=== PATIENT | female | born 1960 | race Caucasian/White ===

== ENCOUNTER 2020-01-17 05:21 | Emergency (ER) | payer OTHER, SELFPAY ==
[2020-01-17 05:22] VITALS: BP 170/77; PULSE 112; RESP 20; O2SAT 97; BMI 40.7
--- NOTE | 2020-01-17 05:43 | CT_ITS ---
WS: [id number] CTA OF THE CHEST WITH PULMONARY EMBOLISM PROTOCOL TECHNIQUE: High-resolution contrast enhanced CTA of the chest with coronal and sagittal reformatted i mages with pulmonary embolism protocol. MIP images are also reviewed. CLINICAL INFORMATION: chest pain COMPARISON: December 18, 2018 DLP: 573.[address] scans at [facility] use at least one of these dose optimization techniques: automat ed exposure control; mA and/or kV adjustment per patient size (includes targeted exams where dose is matched to clinical indication); or iterative reconstruction. FINDINGS: Proximal main pulmonary arteries are patent. Segmental and subsegmental arteries are patent. No evide nce for pulmonary embolus. Both lungs are well aerated. No acute pulmonary infiltrates. No consolidation or pleural fluid. No fo omega pneumonia. No mediastinal or hilar lymphadenopathy. No axillary lymphadenopathy. Moderate esophag eal hiatal hernia. Hepatic vein reflux unchanged from 2019. CT/CT angio chest PE protcl [id number] IMPRESSION: 1. No evidence of pulmonary embolus. 2. No acute pulmonary infiltrates. Lungs are well aerated. 3. Tricuspid regurgitation with reflux into the hepatic veins.
--- NOTE | 2020-01-17 05:44 | ECG_ITS ---
Measurements Intervals [place] Rate: 94 P: [place]: 0 QRS: 18 QRSD: 109 T: 114 QT: 366 QTc: 459 ATRIAL FIBRILLATION WITH ABERRANT CONDUCTION OR VENTRICULAR PREMATURE COMPLEXES NONSPECIFIC ST & T-WAVE ABNORMALITY Compared to ECG 12/18/2018 14:54:34 Ventricular premature complex(es) now present Aberrant conduction of supraventricular beat(s) now present Supraventricular rhythm no longer present T-wave abnormality still present Electronically Signed On 01-17-2020 15:32:01 CHILD CARE DIRECTOR by Nancy Mims M.D. [id number]
--- NOTE | 2020-01-17 05:45 | ED_ITS ---
Documented by User: Clem Chi DO 01/17/20 06:15 HPI - SOB/Dyspnea General: Chief Complaint: Shortness of Breath/Dyspnea Stated Complaint: difficulty breathing Time Seen by Provider: 01/17/20 05:28 History of Present Illness: MD elicited complaint: shortness of breath Pertinent past history: PE Onset (ago): hour(s) Context: recent illness and anxiety Timing: constant Severity: similar to previous episodes Exacerbating factors: exertion Known history of: PE Associated symptoms: Deny chest pain, cough, dizziness, fever(s) or nausea Treatment prior to arrival: none Review of Systems Const: Denies: fever or chills Eyes: Denies: change in vision or blurry vision ENMT: Denies: painful swallowing, nose bleeds, post nasal drip or facial/sinus pain Card: Denies: chest pain Resp: Reports: shortness of breath; Denies: productive cough, non-productive cough or wheezing GI: Denies: nausea : Denies: painful urination, urinary frequency, urinary urgency or blood in urine Musc: Denies: neck pain or back pain Skin/Breast: Denies: rash, itching or redness Neuro: Denies: headache or dizziness Psych: Denies: anxiety PFSH ED PFSH: Social History Smoking and tobacco status: former smoker Physical Exam Const: GENERAL APPEARANCE: well developed ORIENTATION/CONSCIOUSNESS: Yes oriented to person, Yes oriented to place and Yes oriented to time HENMT: COMMON NORMALS: normocephalic, external ears normal and external nose normal HEAD & SCALP: normocephalic; no scalp tenderness FACE & SINUS: normal facial exam NOSE: external nose normal and no nasal discharge EXTERNAL EAR: Yes external ears normal MOUTH: tongue normal TEETH & GINGIVA: no abnormal tooth and associated gingiva THROAT: posterior oropharynx normal; no peritonsillar mass Eye: COMMON NORMALS: PERRL, EOMs intact bilaterally and conjunctivae normal EYELID: eyelids normal CONJUNCTIVA: Yes conjunctivae normal PUPIL: Yes PERRL Chest: COMMONS NORMALS: inspection of chest normal CHEST: No tenderness Resp: COMMON NORMALS: clear to auscultation bilaterally EFFORT & INSPECTION: No tachypneic, No respiratory distress, No retractions, No uses accessory muscles and No tracheal deviation AUSCULTATION: clear to auscultation bilaterally, no rhonchi, no wheezes and lung sounds not diminished Cardio: COMMON NORMALS: regular rate and regular rhythm RATE: regular rate RHYTHM: regular rhythm HEART SOUNDS: no murmurs PERIPHERAL PULSES: radial pulses present GI: INSPECTION: No abdominal distension AUSCULTATION: No hyperactive bowel sounds and No hypoactive bowel sounds PALPATION: No guarding and No rigid PERCUSSION: no dullness to percussion and no tympanic to percussion Extremity: COMMON NORMALS: no calf tenderness and no pedal edema Neuro: SENSORIUM/ORIENTATION: Yes oriented to person, Yes oriented to place and Yes oriented to time Psych: COMMON NORMALS: mental status grossly normal MOOD & AFFECT: Yes anxious Skin: COMMON NORMALS: no rashes or lesions noted GENERAL SKIN EXAM: no rashes or lesions noted Course Vital Signs: Vital signs: Vital Signs Pulse Rate 54 L 01/17/20 08:31 Respiratory Rate 16 01/17/20 08:31 Blood Pressure 129/81 01/17/20 08:31 Pulse Oximetry 98 01/17/20 08:31 MDM - SOB/Dyspnea MDM Narrative: Medical decision making narrative: 59yo female with a hx of PE last year, on Eliquis. Presents with sudden onset sob. Feels like can't get last part of breath in. She is quite anxious, mildly tearful. EKG shows sinus rhythm with frequent pvcs. No st elevation. saturations 100% on the monitor. Labs and CTA ordered. She'll be checked out to Dr. Mason at shift change. Lab Data: Labs: Lab Results 01/17/20 01/17/20 01/17/20 Range/Units 05:35 05:35 05:35 WBC 6.6 (4.0-10.0) 10^3/ uL RBC 5.23 (4.1-5.3) 10^6/u L Hgb 14.9 (11.5-15.3) g/dL Hct 47.4 H (37.0-47.0) % MCV 90.6 (81-99) fL MCH 28.5 (28.0-34.0) pg MCHC 31.4 (30.0-36.0) g/dL RDW 12.9 (12.1-15.1) % Plt Count 242 (130-400) 10^3/c mm MPV 12.0 H (7.4-10.4) fL Neut % (Auto) 49.9 % Lymph % (Auto) 39.0 % [place] % (Auto) 7.9 % Eos % (Auto) 2.1 % Baso % (Auto) 0.8 % Neut # (Auto) 3.3 (1.8-7.7) 10^3/u L Lymph # (Auto) 2.6 (0.8-4.8) 10^3/u L [place] # (Auto) 0.5 (0.2-0.9) 10^3/u L Eos # (Auto) 0.1 (0.0-0.8) 10^3/u L Baso # (Auto) 0.1 (0.0-0.1) 10^3/u L Nucleated RBC % (a uto) 0 % Nucleated RBCs # 0.0 /100WBC PT 13.00 (10.5-13.3) SECO NDS INR 0.96 (0.8-1.2) APTT 27.5 (23.9-36.7) SECO NDS Sodium 141 (136-145) mmol/L Potassium 4.0 (3.5-5.1) mmol/L Chloride 104 (98-107) mmol/L Carbon Dioxide 26 (22-29) mmol/L Anion Gap 15.0 (5-19) BUN 20 (6-20) mg/dL Creatinine 0.8 (0.5-0.9) mg/dL GFR Calculation 73.4 L (90-130) mL/min Glucose 131 H (65-115) mg/dL Calcium 9.5 (8.5-10.5) mg/dL Total Bilirubin 0.3 (0.15-1.2) mg/dL AST 18 (0-32) U/L ALT 20 (0-33) U/L Alkaline Phosphata se 66 (35-105) IU/L Troponin T Baselin e (0-10) ng/mL Troponin T 120 Min lower [place] (0-10) ng/mL Delta Troponin T (0-10) ABS# NT-Pro-B Natriuret Pep 1330 H (0-125) pg/mL Total Protein 6.5 L (6.6-8.7) g/dL Albumin 4.4 (3.5-5.2) g/dL Globulin 2.1 (1.3-4.6) g/dL 01/17/20 01/17/20 Range/Units 05:35 07:20 WBC (4.0-10.0) 10^3/ uL RBC (4.1-5.3) 10^6/u L Hgb (11.5-15.3) g/dL Hct (37.0-47.0) % MCV (81-99) fL MCH (28.0-34.0) pg MCHC (30.0-36.0) g/dL RDW (12.1-15.1) % Plt Count (130-400) 10^3/c mm MPV (7.4-10.4) fL Neut % (Auto) % Lymph % (Auto) % [place] % (Auto) % Eos % (Auto) % Baso % (Auto) % Neut # (Auto) (1.8-7.7) 10^3/u L Lymph # (Auto) (0.8-4.8) 10^3/u L [place] # (Auto) (0.2-0.9) 10^3/u L Eos # (Auto) (0.0-0.8) 10^3/u L Baso # (Auto) (0.0-0.1) 10^3/u L Nucleated RBC % (a uto) % Nucleated RBCs # /100WBC PT (10.5-13.3) SECO NDS INR (0.8-1.2) APTT (23.9-36.7) SECO NDS Sodium (136-145) mmol/L Potassium (3.5-5.1) mmol/L Chloride (98-107) mmol/L Carbon Dioxide (22-29) mmol/L Anion Gap (5-19) BUN (6-20) mg/dL Creatinine (0.5-0.9) mg/dL GFR Calculation (90-130) mL/min Glucose (65-115) mg/dL Calcium (8.5-10.5) mg/dL Total Bilirubin (0.15-1.2) mg/dL AST (0-32) U/L ALT (0-33) U/L Alkaline Phosphata se (35-105) IU/L Troponin T Baselin e 23 H (0-10) ng/mL Troponin T 120 Min lower [place] 17.55 H (0-10) ng/mL Delta Troponin T -5.45 L (0-10) ABS# NT-Pro-B Natriuret Pep (0-125) pg/mL Total Protein (6.6-8.7) g/dL Albumin (3.5-5.2) g/dL Globulin (1.3-4.6) g/dL Discharge Plan Discharge Patient Disposition: Home, Self-Care Clinical Impression: Atrial fibrillation, controlled, Congestive heart failure, History of pulmonary embolism Condition: Stable Prescriptions: No Action levothyroxine 88 mcg Tablet 88 mcg PO DAILY RF: 0 triamterene-hydrochlorothiazid 37.5-25 mg Tablet 1 tab PO DAILY RF: 0 Eliquis 5 mg Tablet 5 mg PO BID RF: 0 Discharge Orders: Discharge Order (Routine); Ordered 01/17/20 Ordered By: Rommel Mason Other Ambulatory Orders: Holter Monitor (Routine) Timeframe: 1 Day Facility: [facility] - Location: Cardiology Outpatients Ordered By: Rommel Mason Referrals: [facility] [Other] Discharge Diet: Usual diet Discharge Activity: Resume usual activity Activity Restrictions/Additional Instructions: Outpatients will contact you with an appointment for a 24-hour Holter monitor. Continue all of your other medications at this time. Discharge Date/Time: 01/17/20 08:32 Sign Out Sign Out Data: Patient Sign Out occurred on 01/17/20 at 06:15. Patient's care was discussed, and care was transferred from to Rommel Mason DO. Coding Level of Care Code ED Patient Care Director for Chg Fwd Exam Comprehensive Documented by User: Rommel Mason DO 01/17/20 09:21 HPI - SOB/Dyspnea General: Chief Complaint: Shortness of Breath/Dyspnea Stated Complaint: difficulty breathing Time Seen by Provider: 01/17/20 05:28 History of Present Illness: HPI Narrative: 59 yo female presents with complaint of dyspnea. She has had PE in the past and is currently on eliquis. Dr Chi initially and has ordered a CT scan for PE. results are pending. MD elicited complaint: shortness of breath Pertinent past history: PE Onset (ago): hour(s) Timing: constant Severity: moderate Exacerbating factors: exertion Relieving factors: oxygen and rest Known history of: PE Associated symptoms: Reports no associated symptoms PFSH ED PFSH: Social History Smoking and tobacco status: former smoker Physical Exam Const: COMMON NORMALS: average body habitus, oriented x3 and alert GENERAL APPEARANCE: cooperative, comfortable, well kempt and well developed NUTRITIONAL APPEARANCE: obese ORIENTATION/CONSCIOUSNESS: Yes awake, Yes oriented to person and Yes oriented to place Eye: COMMON NORMALS: PERRL, EOMs intact bilaterally, conjunctivae normal and no scleral icterus CONJUNCTIVA: Yes conjunctivae normal PUPIL: Yes PERRL Neck/C-Spine: COMMON NORMALS: full ROM, no lymphadenopathy, supple, no meningeal signs and thyroid normal THYROID: thyroid normal and asymmetrical Lymph: LYMPHATIC: no lymphadenopathy noted Resp: COMMON NORMALS: normal respiratory effort, no retractions, no use of accessory muscles and clear to auscultation bilaterally AUSCULTATION: clear to auscultation bilaterally Cardio: COMMON NORMALS: regular rate and regular rhythm RATE: regular rate RHYTHM: regular rhythm HEART SOUNDS: no murmurs GI: COMMON NORMALS: normal to inspection, nondistended, normoactive bowel sounds, soft to palpation and no hepatosplenomegaly PALPATION: Yes soft and Yes no hepatosplenomegaly : COMMON NORMALS: Yes no CVA tenderness BLADDER/KIDNEY EXAM: Yes no CVA tenderness Back/Pelvis: COMMON NORMALS: no CVA tenderness LUMBAR SPINE/LOWER BACK: Yes normal to inspection Extremity: COMMON NORMALS: no clubbing, cyanosis or edema, no calf tenderness and no pedal edema Neuro: COMMON NORMALS: oriented x3 SENSORIUM/ORIENTATION: Yes alert, Yes oriented to person and Yes oriented to place MENINGEAL SIGNS: Yes no meningeal signs Psych: APPEARANCE: Yes well kempt Skin: COMMON NORMALS: no rashes or lesions noted and skin turgor normal GENERAL SKIN EXAM: no rashes or lesions noted and turgor normal Course ED course: CTA chest negative for pulmonary emboli there is no evidence of pneumonia or CHF. Will renew and discharge patient home at this point continue Eliankush. Have her follow-up with her primary care doctor. She did have on her EKGs what it did appear to be A. fib she has frequent PVCs from the EKG there are no P waves and it is irregular however the rate is very well controlled. She is already on anticoagulants that I think should be all she would need to have at this point will put her on 24-hour Holter monitor. Vital Signs: Vital signs: Vital Signs Pulse Rate 54 L 01/17/20 08:31 Respiratory Rate 16 01/17/20 08:31 Blood Pressure 129/81 01/17/20 08:31 Pulse Oximetry 98 01/17/20 08:31 MDM - SOB/Dyspnea Lab Data: Labs: Lab Results 01/17/20 01/17/20 01/17/20 Range/Units 05:35 05:35 05:35 WBC 6.6 (4.0-10.0) 10^3/ uL RBC 5.23 (4.1-5.3) 10^6/u L Hgb 14.9 (11.5-15.3) g/dL Hct 47.4 H (37.0-47.0) % MCV 90.6 (81-99) fL MCH 28.5 (28.0-34.0) pg MCHC 31.4 (30.0-36.0) g/dL RDW 12.9 (12.1-15.1) % Plt Count 242 (130-400) 10^3/c mm MPV 12.0 H (7.4-10.4) fL Neut % (Auto) 49.9 % Lymph % (Auto) 39.0 % [place] % (Auto) 7.9 % Eos % (Auto) 2.1 % Baso % (Auto) 0.8 % Neut # (Auto) 3.3 (1.8-7.7) 10^3/u L Lymph # (Auto) 2.6 (0.8-4.8) 10^3/u L [place] # (Auto) 0.5 (0.2-0.9) 10^3/u L Eos # (Auto) 0.1 (0.0-0.8) 10^3/u L Baso # (Auto) 0.1 (0.0-0.1) 10^3/u L Nucleated RBC % (a uto) 0 % Nucleated RBCs # 0.0 /100WBC PT 13.00 (10.5-13.3) SECO NDS INR 0.96 (0.8-1.2) APTT 27.5 (23.9-36.7) SECO NDS Sodium 141 (136-145) mmol/L Potassium 4.0 (3.5-5.1) mmol/L Chloride 104 (98-107) mmol/L Carbon Dioxide 26 (22-29) mmol/L Anion Gap 15.0 (5-19) BUN 20 (6-20) mg/dL Creatinine 0.8 (0.5-0.9) mg/dL GFR Calculation 73.4 L (90-130) mL/min Glucose 131 H (65-115) mg/dL Calcium 9.5 (8.5-10.5) mg/dL Total Bilirubin 0.3 (0.15-1.2) mg/dL AST 18 (0-32) U/L ALT 20 (0-33) U/L Alkaline Phosphata se 66 (35-105) IU/L Troponin T Baselin e (0-10) ng/mL Troponin T 120 Min lower [place] (0-10) ng/mL Delta Troponin T (0-10) ABS# NT-Pro-B Natriuret Pep 1330 H (0-125) pg/mL Total Protein 6.5 L (6.6-8.7) g/dL Albumin 4.4 (3.5-5.2) g/dL Globulin 2.1 (1.3-4.6) g/dL 01/17/20 01/17/20 Range/Units 05:35 07:20 WBC (4.0-10.0) 10^3/ uL RBC (4.1-5.3) 10^6/u L Hgb (11.5-15.3) g/dL Hct (37.0-47.0) % MCV (81-99) fL MCH (28.0-34.0) pg MCHC (30.0-36.0) g/dL RDW (12.1-15.1) % Plt Count (130-400) 10^3/c mm MPV (7.4-10.4) fL Neut % (Auto) % Lymph % (Auto) % [place] % (Auto) % Eos % (Auto) % Baso % (Auto) % Neut # (Auto) (1.8-7.7) 10^3/u L Lymph # (Auto) (0.8-4.8) 10^3/u L [place] # (Auto) (0.2-0.9) 10^3/u L Eos # (Auto) (0.0-0.8) 10^3/u L Baso # (Auto) (0.0-0.1) 10^3/u L Nucleated RBC % (a uto) % Nucleated RBCs # /100WBC PT (10.5-13.3) SECO NDS INR (0.8-1.2) APTT (23.9-36.7) SECO NDS Sodium (136-145) mmol/L Potassium (3.5-5.1) mmol/L Chloride (98-107) mmol/L Carbon Dioxide (22-29) mmol/L Anion Gap (5-19) BUN (6-20) mg/dL Creatinine (0.5-0.9) mg/dL GFR Calculation (90-130) mL/min Glucose (65-115) mg/dL Calcium (8.5-10.5) mg/dL Total Bilirubin (0.15-1.2) mg/dL AST (0-32) U/L ALT (0-33) U/L Alkaline Phosphata se (35-105) IU/L Troponin T Baselin e 23 H (0-10) ng/mL Troponin T 120 Min lower [place] 17.55 H (0-10) ng/mL Delta Troponin T -5.45 L (0-10) ABS# NT-Pro-B Natriuret Pep (0-125) pg/mL Total Protein (6.6-8.7) g/dL Albumin (3.5-5.2) g/dL Globulin (1.3-4.6) g/dL Discharge Plan Discharge Patient Disposition: Home, Self-Care Clinical Impression: Atrial fibrillation, controlled, Congestive heart failure, History of pulmonary embolism Condition: Stable Prescriptions: No Action levothyroxine 88 mcg Tablet 88 mcg PO DAILY RF: 0 triamterene-hydrochlorothiazid 37.5-25 mg Tablet 1 tab PO DAILY RF: 0 Eliquis 5 mg Tablet 5 mg PO BID RF: 0 Discharge Orders: Discharge Order (Routine); Ordered 01/17/20 Ordered By: Rommel Mason Other Ambulatory Orders: Holter Monitor (Routine) Timeframe: 1 Day Facility: [facility] - Location: Cardiology Outpatients Ordered By: Rommel Mason Referrals: [facility] [Other] Discharge Diet: Usual diet Discharge Activity: Resume usual activity Activity Restrictions/Additional Instructions: Outpatients will contact you with an appointment for a 24-hour Holter monitor. Continue all of your other medications at this time. Discharge Date/Time: 01/17/20 08:32 Sign Out Sign Out Data: Patient Sign Out occurred on 01/17/20 at 06:15. Patient's care was discussed, and care was transferred from to Rommel Mason DO. Coding Level of Care Code ED Patient Care Director for Matt Fwesvin Exam Comprehensive
[2020-01-17] MEDS: LORazepam 2 mg/mL INJ 1 mL 1 MG IVP (05:50)
[2020-01-17 05:55] VITALS: BP 170/77; PULSE 78; RESP 20; O2SAT 100
[2020-01-17 06:00] LABS: Basophils # 0.1 10^3/uL (0.0-0.1); Basophils % 0.8 %; Eosinophils # 0.1 10^3/uL (0.0-0.8); Eosinophils % 2.1 %; Hematocrit 47.4 % (37.0-47.0); Hemoglobin 14.9 g/dL (11.5-15.3); Lymphocytes # 2.6 10^3/uL (0.8-4.8); Mean Corpuscular HGB Conc 31.4 g/dL (30.0-36.0); Mean Corpuscular Hemoglobin 28.5 pg (28.0-34.0); Mean Corpuscular Volume 90.6 fL (81-99); Monocytes # 0.5 10^3/uL (0.2-0.9); Monocytes % 7.9 %; Neutrophils # 3.3 10^3/uL (1.8-7.7); Neutrophils % 49.9 %; Nucleated Red Blood Cells % 0 %; Platelet Count 242 10^3/cmm (130-400); Red Blood Count 5.23 10^6/uL (4.1-5.3); Red Cell Distribution Width 12.9 % (12.1-15.1); White Blood Count 6.6 10^3/uL (4.0-10.0)
[2020-01-17 06:05] LABS: INR 0.96 (0.8-1.2)
[2020-01-17 06:06] LABS: Partial Thromboplastin Time 27.5 SECONDS (23.9-36.7)
[2020-01-17 06:11] LABS: Troponin(5th) Baseline 23 ng/mL (0-10)
[2020-01-17 06:20] LABS: Alanine Aminotransferase 20 U/L (0-33); Albumin Level 4.4 g/dL (3.5-5.2); Alkaline Phosphatase 66 IU/L (35-105); Aspartate Amino Transferase 18 U/L (0-32); Blood Urea Nitrogen 20 mg/dL (6-20); Calcium 9.5 mg/dL (8.5-10.5); Carbon Dioxide 26 mmol/L (22-29); Chloride 104 mmol/L (98-107); Globulin 2.1 g/dL (1.3-4.6); Glomerular Filtration Rate 73.4 mL/min (90-130); Glucose 131 mg/dL (65-115); NT Pro B Type Natriuretic Pept 1330 pg/mL (0-125); Sodium 141 mmol/L (136-145); Total Bilirubin 0.3 mg/dL (0.15-1.2); Total Protein 6.5 g/dL (6.6-8.7)
--- NOTE | 2020-01-17 06:26 | PC.NURSE ---
Patient states she feels more relaxed and less anxious after ativan but still can't get a deep full breath
--- NOTE | 2020-01-17 06:30 | PC.NURSE ---
Patient transported by internetworking technician to CT via stretcher
[2020-01-17] MEDS: iohexol 350 mg/mL 100 mL Btl IV (06:57)
[2020-01-17 07:41] LABS: Troponin 5 2HR 17.55 ng/mL (0-10)
--- NOTE | 2020-01-17 07:44 | ECG_ITS ---
Measurements Intervals [place] Rate: 75 P: [place]: 0 QRS: 21 QRSD: 102 T: 3 QT: 422 QTc: 473 ATRIAL FIBRILLATION WITH ABERRANT CONDUCTION OR VENTRICULAR PREMATURE COMPLEXES NONSPECIFIC ST & T-WAVE ABNORMALITY Compared to ECG 12/18/2018 14:54:34 Ventricular premature complex(es) now present Aberrant conduction of supraventricular beat(s) now present Supraventricular rhythm no longer present T-wave abnormality still present Electronically Signed On 01-17-2020 15:35:58 CRIMINAL PSYCHOLOGIST by Nancy Mims M.D. [email or web address]
[2020-01-17 07:45] LABS: Troponin 5 2HR Delta -5.45 ABS# (0-10)
[2020-01-17 08:16] VITALS: BP 133/60; PULSE 63; O2SAT 94
[2020-01-17 08:31] VITALS: BP 129/81; PULSE 54; RESP 16; O2SAT 98
--- NOTE | 2020-01-20 11:19 | DCPLANNER ---
late entry - correctional case records supervisor had message to schedule a 24 hour halter monitor. Patient had a follow up appointment scheduled for January 18, 2020 and patient did attend the appointment.
== END 2020-01-17 08:32 | disposition home or self-care (01) ==
PROVIDERS: Emergency Medicine; Emergency Provider Family Medicine
DX: I48.91 Unspecified atrial fibrillation (principal); I50.9 Heart failure, unspecified; Z79.01 Long term (current) use of anticoagulants; Z86.711 Personal history of pulmonary embolism; Z87.891 Personal history of nicotine dependence
CPT/HCPCS: 36415; 71275; 80053; 83880; 84484; 85025; 85610; 85730; 93005; 96374; 96375; 99283; 99284; J2060; Q9967

== ENCOUNTER 2020-06-14 14:54 | Outpatient (CLI) | payer OTHER, SELFPAY ==
--- NOTE | 2020-06-14 15:00 | MM_ITS ---
WS: [id number] BILATERAL SCREENING DIGITAL MAMMOGRAM WITH CAD HISTORY: SCREENING COMPARISON: 05/17/2019 and 08/11/2015 Bilateral CC and MLO views submitted. Computer aided detection analyzed. Breast composition: There are scattered areas of fibroglandular density. No suspicious masses, microc alcifications or architectural distortion. Benign calcification posterior lateral RIGHT breast. MM/[id number] IMPRESSION: BI-RADS: 2-Benign FOLLOW UP: 1 Year Follow-up
== END 2020-06-14 14:55 | disposition home or self-care (01) ==
LOC: RADSHAW 14:58
PROVIDERS: PCP Nurse Practitioner Family; Visit Provider Nurse Practitioner Family
DX: Z12.31 Encounter for screening mammogram for malignant neoplasm of breast (principal)
CPT/HCPCS: 77067

== ENCOUNTER 2020-11-16 19:22 | Emergency (ER) | payer OTHER, SELFPAY ==
[2020-11-16 19:29] VITALS: BP 169/74; PULSE 104; RESP 18; TEMP 36.8; O2SAT 97; BMI 43.4
--- NOTE | 2020-11-16 19:57 | W.ED.FALL ---
HPI - Fall General: Chief Complaint: Fall Stated Complaint: fall, work comp Time Seen by Provider: 11/16/20 19:56 History of Present Illness: HPI Narrative: Patient is a 60-year-old female comes to the ED after having a fall. She is complaining of having bilateral knee pain. Patient is an employee here at [facility] [employer] and this is a workers comp case and patient fell in parking lot. Patient says when she fell her right knee hit the ground first and hardest. Then her left knee hit the ground. Right knee has some superficial abrasions noted. She has no pain with range of motion or ambulating. She is up-to-date on her tetanus as well. Denies any head trauma or loss of consciousness. Associated symptoms-after fall: Denies abdominal pain, chest pain, headache(s), hematuria or neck pain Review of Systems Narrative: Fall and work parking lot. Const: Denies: fever(s), chills or fatigue Eyes: Denies: change in vision or eye discomfort ENMT: Denies: throat pain, odynophagia, nasal discharge or nasal congestion Card: Denies: chest pain, palpitations, edema, swelling of feet/ankles, dyspnea on exertion or orthopnea Resp: Denies: dyspnea, productive cough or non-productive cough GI: Denies: abdominal pain, nausea, vomiting, diarrhea, constipation or hematochezia : Denies: flank pain, dysuria or hematuria Musc: Denies: neck pain, back pain or extremity swelling Skin/Breast: Reports: new lesions (Superficial abrasion on right knee.); Denies: rash Neuro: Denies: headache(s), numbness in extremities or weakness in extremities PFS ED PFSH: Medical History Recurrent UTI Social History Smoking and tobacco status: former smoker Physical Exam Const: COMMON NORMALS: no acute distress, patient oriented x3 and healthy appearing GENERAL APPEARANCE: cooperative and comfortable NUTRITIONAL APPEARANCE: overweight HENMT: COMMON NORMALS: normocephalic HEAD & SCALP: normocephalic MOUTH: Normal oral and palatal mucosa present THROAT: posterior oropharynx normal and uvula midline Eye: COMMON NORMALS: Equal, round and reactive pupils present PUPIL: Yes Equal, round and reactive pupils present Neck/C-Spine: COMMON NORMALS: supple GENERAL: Yes normal visual inspection Resp: COMMON NORMALS: normal respiratory effort, No retractions, No use of accessory muscles and clear to auscultation bilaterally AUSCULTATION: clear to auscultation bilaterally Cardio: COMMON NORMALS: regular rate, regular rhythm, S1 normal heart sound present, S2 normal heart sound present, No gallops present (Cardio), No clicks present (Cardio), No murmurs present (Cardio) and Peripheral pulses 2+ throughout RATE: regular rate RHYTHM: regular rhythm HEART SOUNDS: S1 normal heart sound present and S2 normal heart sound present PERIPHERAL PULSES: Peripheral pulses 2+ throughout GI: COMMON NORMALS: Normal to inspection, nondistended, normoactive bowel sounds present, Soft to palpation, non-tender and no masses PALPATION: Yes Soft to palpation : COMMON NORMALS: Yes no CVA tenderness BLADDER/KIDNEY EXAM: Yes no CVA tenderness Back/Pelvis: COMMON NORMALS: no CVA tenderness Extremity: NARRATIVE EXTREMITY EXAM: Right knee?contusion and ecchymosis present. Patient also has superficial abrasion on the knee as well. Full range of motion. Mild tenderness when palpating over contusion on knee. Patient is able to ambulate without any pain or discomfort. Neurovascular intact distally. Left knee?contusion and ecchymosis present. Full range of motion. Mild tenderness when palpating over contusion on knee. Patient is able to ambulate without any pain or discomfort. Neurovascular intact distally. GENERAL: Yes normal exam except as noted Neuro: COMMON NORMALS: patient oriented x3 and moves all extremities Skin: TRAUMA: abrasion (2 superficial abrasions on right knee.) Course Vital Signs: Vital signs: Vital Signs Temperature 98.3 F 11/16/20 19:29 Pulse Rate 104 H 11/16/20 19:29 Respiratory Rate 18 11/16/20 19:29 Blood Pressure 169/74 11/16/20 19:29 Pulse Oximetry 97 11/16/20 19:29 MDM - Fall MDM Narrative: Medical decision making narrative: Patient is a 60-year-old female comes to the ED after fall. Patient is an employee here at [employer] and fell in parking lot. This is a workers comp case. Patient is superficial abrasion to right knee with contusion seen on both right and left knee. Neurovascular tact distally bilaterally. Patient has no pain with range of motion and is able to ambulate with no pain. X-ray of right and left knee showed no acute fractures or findings. Patient was discharged in Worker's Comp. paperwork completed. Patient diagnosed with knee contusion and skin abrasion. She was up-to-date on tetanus so it was not administered today. Patient was told she can return to work immediately without any restrictions. She was told to rest, ice and elevate right and left leg. Return ED precautions given. Patient understood and agreed with plan. Imaging Data^: Xray Ortho: Attestation: I personally reviewed and interpreted this imaging study as follows: My impression: Left and right knee x-rays show no acute fractures or findings. Radiologist's impression: [employer] [address] [address] XRay Report Signed Patient: Milly Mauricio Unit #: [id number] : 1960 Age/Sex: 60 / F ADM Date: 11/16/20 Loc: ER Room/Bed: Attending Dr: Ordering Provider/Ordering MD: Conrad Cisneros Date of Service: 11/16/20 Procedure(s): XR knee LT 3V* 19447 Accession Number(s): [id number] Report Number: [id number] PROCEDURE INFORMATION: Exam: XR Left Knee Exam date and time: 11/16/2020 8:22 PM Age: 60 years old Clinical indication: Pain; Knee; Right; Additional info: Fall TECHNIQUE: Imaging protocol: XR Left knee. Views: 3 views. COMPARISON: No relevant prior studies available. FINDINGS: Bones/joints: Normal. Soft tissues: Normal. XR/XR knee LT 3V* [id number] IMPRESSION: No acute findings. Dictated By: Finesse Jacome Signed By: Finesse Jacome Signed Date/Time: 11/16/202102 DD/ [address] [address] XRay Report Signed Patient: Milly Mauricio Unit #: [id number] : 1960 Age/Sex: 60 / F ADM Date: 11/16/20 Loc: ER Room/Bed: Attending Dr: Ordering Provider/Ordering MD: Conrad Cisneros Date of Service: 11/16/20 Procedure(s): XR knee RT 3V* 73116 Accession Number(s): [id number] Report Number: [id number] PROCEDURE INFORMATION: Exam: XR Right Knee Exam date and time: 11/16/2020 8:19 PM Age: 60 years old Clinical indication: Injury or trauma; Fall; Work related; Blunt trauma; Bilateral; Injury date: 11/16/20; Injury details: PT fell. Pain in right and left knees TECHNIQUE: Imaging protocol: XR Right knee. Views: 3 views. COMPARISON: No relevant prior studies available. FINDINGS: Bones/joints: Normal. Soft tissues: Normal. XR/XR knee RT 3V* [id number] IMPRESSION: No acute findings. Dictated By: Finesse Jacome Signed By: Finesse Jacome Signed Date/Time: 11/16/202101 DD/ 99 Discharge Plan Discharge Patient Disposition: Home Clinical Impression: Abrasion of skin Contusion Qualifiers: Encounter type: initial encounter Contusion area: knee Laterality: unspecified laterality Qualified Code(s): S80.00XA - Contusion of unspecified knee, initial encounter Condition: Stable Prescriptions: No Action nitrofurantoin monohyd/m-cryst [Macrobid] 100 mg capsule 100 mg PO BID Qty: 42 RF: 0 levothyroxine 88 mcg Tablet 88 mcg PO DAILY RF: 0 triamterene-hydrochlorothiazid 37.5-25 mg Tablet 1 tab PO DAILY RF: 0 Eliquis 5 mg Tablet 5 mg PO BID RF: 0 Discharge Orders: Discharge ED (Routine); Ordered 11/16/20 Ordered By: Conrad Cisneros Referrals: Richard Nicolas NP [Primary Care Provider] - Discharge Diet: Regular Discharge Activity: Increase activity as tolerated Patient Instructions: Contusion in Adults (ED) Activity Restrictions/Additional Instructions: Follow-up with medical provider as directed in 7 to 10 days. Rest, ice and elevate legs to help with symptoms. Take [id number] Tylenol for pain. Continue taking all home medications. Patient can return to work without any restrictions. Return to the ER or your medical provider if condition worsens. Please read and understand discharge instructions. If any questions, please ask. Coding Level of Care Code ED Hunting Sales Associate for Chg Fwd Exam Comprehensive
== END 2020-11-16 21:02 | disposition home or self-care (01) ==
PROVIDERS: Emergency Provider Physician Assistant; PCP Nurse Practitioner Family
DX: S80.02XA Contusion of left knee, initial encounter (principal); S80.01XA Contusion of right knee, initial encounter; W19.XXXA Unspecified fall, initial encounter; Y92.481 Parking lot as the place of occurrence of the external cause; Y99.0 Civilian activity done for income or pay; Z87.891 Personal history of nicotine dependence; Z79.01 Long term (current) use of anticoagulants
CPT/HCPCS: 12345; 73562; 99281; 99282

== ENCOUNTER → 2020-12-05 09:22 | Outpatient (BNVA) | payer OTHER, SELFPAY | PROVIDERS: PCP Nurse Practitioner Family; Visit Provider Family Medicine | DX: S80.11XD Contusion of right lower leg, subsequent encounter (principal); S80.01XD Contusion of right knee, subsequent encounter; Z79.01 Long term (current) use of anticoagulants; Y99.0 Civilian activity done for income or pay | CPT/HCPCS: 85018 ==

== ENCOUNTER 2021-04-04 08:48 | Day surgery (SDC) | payer OTHER, SELFPAY ==
[2021-04-03 07:52] VITALS: BMI 45.4
--- NOTE | 2021-04-04 09:03 | ANES.PREANE2 ---
Pre-Anesthetic Assessment Pre-Anesthetic Assessment: Height/Weight: Height 1.7 m Weight 131.542 kg Preop Diagnosis: Screening Proposed Procedure: Operation Date: 04/04/21 10:30 Proposed Procedures p Colonoscopy 55244 Z12.11(Not Applicable) - Gomez Ricketts MD Familial anesthetic complications: none Was Beta Antonino taken within 24 hours: N/A Was Clonidine taken within 24 hours: N/A Last intake: > 8 hrs holding eqliuis since friday Social: Social History: No alcohol and No tobacco Exam: Pre-Anes Outpt Exam: alert, oriented x 3, clear to auscultation bilaterally and regular rate & rhythm Airway: Cervical ROM: WNL MP: 4 Dentition: Chipped Pulmonary: Pulmonary: Sleep apnea Comments: takes albuterol every few weeks, but states she doesn't have asthma or bronchitis CV/HEM: CV/HEM: Afib and HTN GI: GI: GERD Metabolic: Metabolic: Morbid obesity and Thyroid Anesthetic Plan: ASA status: 3 Anesthesia: MAC Risk of > 500 ml blood loss (7ml/kg in children): No PFSH Anesthesia PFSH: Medical History (Updated 03/16/21 @ 19:48 by Tai Alcantar MD) Atrial fibrillation Chronic anticoagulation Recurrent UTI Family History (Updated 03/12/21 @ 15:23 by Lorraine Gibson, RN) Other Diabetes Hyperlipidemia Hypertension Lung disease Stroke Denies family history of CAD (coronary artery disease) Dementia Chronic kidney disease (CKD) Anesthesia complication Bleeding disorder Family history of premature coronary artery disease Cancer Social History (Updated 03/12/21 @ 15:21 by Lorraine Gibson, RN) Smoking and tobacco status: former smoker Alcohol intake: never Data Anesthesia Cardiac Studies: Holter Monitor 03/02/20
[2021-04-04 09:49] VITALS: BP 155/70; PULSE 50; RESP 16; TEMP 36.6; O2SAT 95
[2021-04-04] MEDS: sodium chloride 0.9% 1,000 ML 30 ML IV (10:02)
--- NOTE | 2021-04-04 10:05 | W.PM.OPSUD ---
Surgery/Procedure H&P Update DATE OF PROCEDURE: April 04, 2021 DATE H&P PERFORMED: 03/05/21 H&P UPDATE INFORMATION: I have reviewed H&P completed within last 30 days, I have examined patient prior to procedure and No changes to prior documentation PREOP DIAGNOSIS: Screening colonoscopy PRIMARY INDICATION FOR PROCEDURE: The same PLANNED PROCEDURE: Operation Date: 04/04/21 10:30 Proposed Procedures p Colonoscopy 65924 Z12.11(Not Applicable) - Gomez Ricketts MD
[2021-04-04 11:00] VITALS: BP 114/58; PULSE 66; RESP 18; TEMP 36.2; O2SAT 95
--- NOTE | 2021-04-04 11:04 | ANE.PACU2 ---
Inpatient post-anesthesia follow up: Airway intact: Yes Vital signs: Temperature 98 F Pulse Rate 50 Respiratory Rate 16 Blood Pressure 155/70 Pulse Oximetry 95 Oxygen Delivery Me thod Room Air Oxygen Flow Rate Fraction of Inspir ed Oxygen Hydration adequate: Yes Nausea and vomiting: No Pain level: 1 Mental status: Baseline
[2021-04-04 11:15] VITALS: BP 104/89; PULSE 64; RESP 16; TEMP 36.5; O2SAT 96
== END 2021-04-04 11:30 | disposition home or self-care (01) ==
PROVIDERS: PCP Nurse Practitioner Family; Visit Provider Surgery
PROC: 0DJD8ZZ Inspection of Lower Intestinal Tract, Via Natural or Artificial Opening Endoscopic (ICD-10-PCS; CPT 45378; principal; 2021-04-04 10:30)
DX: Z12.11 Encounter for screening for malignant neoplasm of colon (principal); K57.30 Diverticulosis of large intestine without perforation or abscess without bleeding; G47.30 Sleep apnea, unspecified; Z79.01 Long term (current) use of anticoagulants; I48.91 Unspecified atrial fibrillation; I10 Essential (primary) hypertension; K21.9 Gastro-esophageal reflux disease without esophagitis; E66.01 Morbid (severe) obesity due to excess calories; Z68.42 Body mass index [BMI] 45.0-49.9, adult; Z82.49 Family history of ischemic heart disease and other diseases of the circulatory system; Z83.3 Family history of diabetes mellitus; Z87.891 Personal history of nicotine dependence
CPT/HCPCS: 45378; 96360; J2704; J7030

== ENCOUNTER 2021-10-15 08:03 | Outpatient (CLI) | payer OTHER, SELFPAY ==
--- NOTE | 2021-10-15 08:06 | MM_ITS ---
WS: [id number] BILATERAL DIGITAL SCREENING MAMMOGRAPHY WITH CAD CLINICAL INFORMATION: SCREENING HISTORY: Screening mammogram. No current complaints. COMPARISON: June 14, 2020 TECHNIQUE: Bilateral CC and MLO views. FINDINGS: Scattered fibroglandular densities bilaterally. Punctate and lucent centered calcifications are stabl e. No suspicious focal mass, asymmetry, calcifications, or architectural distortion. No evidence of m alignancy. MM/[place] [id number] IMPRESSION: BI-RADS: 2-Benign FOLLOW UP: 1 Year Follow-up Recommend return to annual screening mammography.
== END 2021-10-15 08:04 | disposition home or self-care (01) ==
LOC: RADSHAW 08:05
PROVIDERS: PCP Nurse Practitioner Family; Visit Provider Nurse Practitioner Family
DX: Z12.31 Encounter for screening mammogram for malignant neoplasm of breast (principal)
CPT/HCPCS: 77067

== ENCOUNTER → 2023-01-21 11:54 | Outpatient (BNVA) | payer OTHER, SELFPAY | PROVIDERS: PCP Nurse Practitioner Family; Visit Provider Nurse Practitioner Family | DX: I10 Essential (primary) hypertension (principal); I48.19 Other persistent atrial fibrillation; R10.9 Unspecified abdominal pain | CPT/HCPCS: 80053; 81003; 83880; 84443; 85025 ==

== ENCOUNTER 2023-02-04 13:41 | Emergency (ER) | payer OTHER, SELFPAY ==
[2023-02-04] VITALS (42 sets, daily range): BP systolic 145–164; BP diastolic 56–95; PULSE 66–110; RESP 12–40; TEMP 36.6; O2SAT 95–100
--- NOTE | 2023-02-04 14:34 | ED_ITS ---
HPI - Chest Pain General: Chief Complaint: Chest Pain Stated Complaint: Chest Pain Time Seen by Provider: 02/04/23 14:17 History of Present Illness: Patient presents to the ER with complaints of chest pain. Patient states she was at work when all of a sudden this right severe chest pain he had her that radiated to her right breast right shoulder region. It lasted for several minutes before it went away. Nothing the patient did would resolve this pain or make it worse. And then it came back a couple more times but milder each time. Patient did get nauseous when this pain hit but did not get diaphoretic or short of breath. Patient is currently pain-free but still nauseous. 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 MD complaint: chest pain Onset (ago): hour(s) Timing of current episode: episodic and now resolved Prior episodes: Yes Onset: during rest Pain location: right chest Pain radiation: right shoulder Severity: moderate Relieving factors: nothing Exacerbating factors: nothing Context: history of DVT/PE Associated symptoms: Reports nausea; Deny abdominal pain, dyspnea, fever(s) or vomiting Treatment prior to arrival: other (Patient is already on Eliquis 5 mg twice daily) Review of Systems General: Reports: 10 or more systems reviewed and unremarkable except in HPI and below Const: Denies: fever(s) or chills Eyes: Denies: change in vision or blurry vision ENMT: Denies: throat pain or odynophagia Card: Reports: chest pain and irregular heart rhythm Resp: Denies: dyspnea, productive cough, non-productive cough or wheezing GI: Reports: nausea; Denies: abdominal pain, vomiting or diarrhea : Denies: flank pain, difficulty voiding, dysuria or urinary frequency Musc: Denies: neck pain Skin/Breast: Denies: rash, pruritus or erythema Neuro: Denies: headache(s), numbness in extremities or weakness in extremities Psych: Denies: anxiety or depression Endo: Denies: polyuria or polydipsia Seng/Lymph: Reports: easy bruising and easy bleeding All/Imm: Denies: urticaria or throat swelling PFSH ED PFSH: Medical History Atrial fibrillation Chronic anticoagulation Diverticulosis Encounter for screening colonoscopy Hypertension Pulmonary embolism Recurrent UTI Surgical History History of dilation and curettage History of tubal ligation Family History Other Diabetes Hyperlipidemia Hypertension Lung disease Stroke Denies family history of CAD (coronary artery disease) Dementia Chronic kidney disease (CKD) Anesthesia complication Bleeding disorder Family history of premature coronary artery disease Cancer Social History Smoking and tobacco status: former smoker Alcohol intake: never Marital status: Current occupational status: employed Physical Exam Const: COMMON NORMALS: no acute distress, patient oriented x3, no limitations, healthy appearing, alert and well nourished HENMT: COMMON NORMALS: normocephalic, atraumatic, hearing grossly normal bilaterally and moist oral mucous membranes HEAD & SCALP: normocephalic and atraumatic Eye: COMMON NORMALS: Equal, round and reactive pupils present, EOMs intact bilaterally and conjunctivae normal CONJUNCTIVA: Yes conjunctivae normal PUPIL: Yes Equal, round and reactive pupils present Neck/C-Spine: COMMON NORMALS: full ROM, no lymphadenopathy, supple and Thyroid normal THYROID: Thyroid normal Chest: COMMONS NORMALS: normal inspection of the chest CHEST: Yes localized rib tenderness with anteroposterior compression (Nurse with palpation over the right anterior chest wall) Resp: COMMON NORMALS: normal respiratory effort, No retractions, No use of accessory muscles and clear to auscultation bilaterally AUSCULTATION: clear to auscultation bilaterally Cardio: COMMON NORMALS: regular rate RATE: regular rate RHYTHM: abnormal rhythm irregularly irregular GI: COMMON NORMALS: Normal to inspection, nondistended, normoactive bowel sounds present, Soft to palpation, non-tender, No hepatosplenomegaly present and no masses PALPATION: Yes Soft to palpation and Yes No hepatosplenomegaly present Neuro: COMMON NORMALS: patient oriented x3, CN's II-XII intact bilaterally, moves all extremities, no focal motor deficits and no sensory deficits noted SENSORIUM/ORIENTATION: Yes alert Course Vital Signs: Vital signs: Vital Signs Temperature 97.8 F 02/04/23 13:49 Pulse Rate 66 02/04/23 18:25 Respiratory Rate 20 H 02/04/23 18:25 Blood Pressure 154/63 02/04/23 18:00 Pulse Oximetry 99 03/14/23 18:25 Oxygen Delivery Me thod 02/04/23 15:25 MDM - Chest Pain Medical Decision Making Patient presented to the ER with sudden onset severe right-sided chest pain that radiated to her right shoulder. This pain lasted for few minutes but then went away. This pain did come back a couple more times before she presented to the ER for further evaluation. Patient does have a history of A-fib and CHF. Patient also has a history of PEs and is on Eliquis. Upon further history and physical exam of the patient as well as labs include serial troponins EKGs and chest x-ray all which were negative. It is thought that this is noncardiac chest pain and the patient will be safe to discharge home and to follow-up with her primary care physician. Patient understand the risks of this and understands that the pain comes back or changes she should come back to the ER for emergent work-up as her condition may change. Patient still agrees with discharge from the ER. Differential Diagnosis Unlikely acute massive pulmonary embolism, acute respiratory failure, acute myocardial infarction, cardiac arrest or sudden cardiac Lab Data 02/04/23 15:08 02/04/23 15:08 Radiology Impressions Chest X-Ray 02/04/23 14:43 IMPRESSION: No acute findings. Laboratory Results WBC 7.6 10^3/uL (4.0-10.0) 02/04/23 15:08 RBC 5.24 10^6/uL (4.1-5.3) 02/04/23 15:08 Hgb 14.5 g/dL (11.5-15.3) 02/04/23 15:08 Hct 45.4 % (37.0-47.0) 02/04/23 15:08 MCV 86.6 fl (81-99) 02/04/23 15:08 MCH 27.7 pg (28.0-34.0) L 02/04/23 15:08 MCHC 31.9 g/dL (30.0-36.0) 02/04/23 15:08 RDW 12.9 % (12.1-15.1) 02/04/23 15:08 Plt Count 324 10^3/cmm (130-400) 02/04/23 15:08 MPV 11.5 fL (7.4-10.4) H 02/04/23 15:08 Neut % (Auto) 54.0 % 02/04/23 15:08 Lymph % (Auto) 35.4 % 02/04/23 15:08 [place] % (Auto) 7.1 % 02/04/23 15:08 Eos % (Auto) 2.4 % 02/04/23 15:08 Baso % (Auto) 0.8 % 02/04/23 15:08 Neut # (Auto) 4.10 10^3/uL (1.8-7.7) 02/04/23 15:08 Lymph # (Auto) 2.7 10^3/uL (0.8-4.8) 02/04/23 15:08 [place] # (Auto) 0.5 10^3/uL (0.2-0.9) 02/04/23 15:08 Eos # (Auto) 0.2 10^3/uL (0.0-0.8) 02/04/23 15:08 Baso # (Auto) 0.1 10^3/uL (0.0-0.1) 02/04/23 15:08 Nucleated RBC % (auto) 0 % 02/04/23 15:08 Nucleated RBCs # 0.0 /100WBC 02/04/23 15:08 PT 13.20 SECONDS (12.1-14.9) 02/04/23 15:08 INR 0.98 (0.8-1.2) 02/04/23 15:08 Sodium 141 mmol/L (136-145) 02/04/23 15:08 Potassium 3.5 mmol/L (3.5-5.1) 02/04/23 15:08 Chloride 101 mmol/L (98-107) 02/04/23 15:08 Carbon Dioxide 28 mmol/L (22-29) 02/04/23 15:08 Anion Gap 15.5 (5-19) 02/04/23 15:08 BUN 22 mg/dL (8-23) 02/04/23 15:08 Creatinine 0.8 mg/dL (0.5-0.9) 02/04/23 15:08 GFR Calculation 72.7 mL/min (90-130) L 02/04/23 15:08 Glucose 125 mg/dL (65-115) H 02/04/23 15:08 Calculated Osmolality 297 mOsm/kg (285-295) H 02/04/23 15:08 Calcium 9.1 mg/dL (8.5-10.5) 02/04/23 15:08 Total Bilirubin 0.2 mg/dL (0.15-1.2) 02/04/23 15:08 AST 18 U/L (0-32) 02/04/23 15:08 ALT 22 U/L (0-33) 02/04/23 15:08 Alkaline Phosphatase 88 U/L (35-105) 02/04/23 15:08 Troponin T Baseline 23 ng/L (0-10) H 02/04/23 15:08 Troponin T 120 Minute 21.82 ng/L (0-10) H 02/04/23 17:00 Delta Troponin T -1.18 ABS# (0-10) L 02/04/23 17:00 NT-Pro-B Natriuret Pep 1096 pg/mL (0-125) H 02/04/23 15:08 Total Protein 6.5 g/dL (6.6-8.7) L 02/04/23 15:08 Albumin 4.1 g/dL (3.5-5.2) 02/04/23 15:08 Globulin 2.4 g/dL (1.3-4.6) 02/04/23 15:08 EKG Data EKG 1: I personally reviewed and interpreted this EKG as follows: EKG interpretation date: 02/04/23 EKG interpretation time: 13:46 Prior EKG tracings: not available for review Interpretation: EKG showed A-fib with aberrant conduction or PVCs, ST deviation and moderate T wave abnormality consider inferior ischemia, showed ventricular rate of 92 bpm, QRS duration of 105, QTc of 412 EKG 2: I personally reviewed and interpreted this EKG as follows: EKG interpretation date: 02/04/23 EKG interpretation time: 17:11 Prior EKG tracings: available for review Interpretation: EKG showed supraventricular rhythm with rate of 87 bpm, nonspecific ST-T wave abnormalities, QRS duration 103, QTc of 456, Discharge Plan Discharge Patient Disposition: Home Clinical Impression: Hx of usp use of blood thinners, Atypical chest pain Atrial fibrillation Qualifiers: Atrial fibrillation type: longstanding persistent Qualified Code(s): I48.11 - Longstanding persistent atrial fibrillation Condition: Stable Prescriptions: No Action pantoprazole 20 mg tablet,delayed release (DR/EC) 20 mg PO DAILY fluticasone propionate [Allergy Relief (fluticasone)] 50 mcg/actuation spray,suspension 1 spray intranasal BID Rx Instructions: administer into each nostril hydroxyzine HCl 25 mg tablet 25 mg PO BID PRN (Reason: Anxiety) albuterol sulfate 90 mcg/actuation HFA aerosol inhaler 2 puff inhalation Q6H PRN (Reason: Allergic Symptoms) potassium chloride 10 mEq capsule, extended release 10 meq PO DAILY PRN (Reason: when taking Lasix) Qty: 90 3RF furosemide 20 mg tablet 20 mg PO DAILY PRN (Reason: edema) Qty: 90 3RF triamterene-hydrochlorothiazid 75-50 mg tablet 1 tab PO DAILY Qty: 90 3RF Eliquis 5 mg Tablet 5 mg PO BID levothyroxine 88 mcg tablet 100 mcg PO DAILY Discharge Orders: Discharge ED (Routine); Ordered 02/04/23 Ordered By: Jose Eduardo Grossman Referrals: Richard Nicolas NP [Primary Care Provider] - 1 week Patient Instructions: A-fib (Atrial Fibrillation) (ED), Chest Pain (ED) Coding Level of Care Code ED Dispatcher Radio for Matt Jacobson
--- NOTE | 2023-02-04 14:43 | XRR_ITS ---
PROCEDURE INFORMATION: Exam: XR Chest Exam date and time: 02/04/2023 2:50 PM Age: 62 years old Clinical indication: Pain; Angina pectoris; Additional info: Chest pain TECHNIQUE: Imaging protocol: Radiologic exam of the chest. Views: 1 view. COMPARISON: CR XR chest 1V [id number] 12/18/2018 7:49 AM FINDINGS: Lungs: No consolidation. Pleural spaces: No pleural effusion. No pneumothorax. Heart/Mediastinum: Top-normal heart size. Bones/joints: Visualized osseous structures are intact. XR/XR chest 1V portable [id number] IMPRESSION: No acute findings.
[2023-02-04 15:18] LABS: Basophils # 0.1 10^3/uL (0.0-0.1); Basophils % 0.8 %; Eosinophils # 0.2 10^3/uL (0.0-0.8); Eosinophils % 2.4 %; Hematocrit 45.4 % (37.0-47.0); Hemoglobin 14.5 g/dL (11.5-15.3); Lymphocytes # 2.7 10^3/uL (0.8-4.8); Lymphocytes % 35.4 %; Mean Corpuscular HGB Conc 31.9 g/dL (30.0-36.0); Mean Corpuscular Hemoglobin 27.7 pg (28.0-34.0); Mean Corpuscular Volume 86.6 fl (81-99); Mean Platelet Volume 11.5 fL (7.4-10.4); Monocytes # 0.5 10^3/uL (0.2-0.9); Monocytes % 7.1 %; Nucleated Red Blood Cells % 0 %; Platelet Count 324 10^3/cmm (130-400); Red Blood Count 5.24 10^6/uL (4.1-5.3); Red Cell Distribution Width 12.9 % (12.1-15.1); White Blood Count 7.6 10^3/uL (4.0-10.0)
[2023-02-04] MEDS: lidocaine 2% viscous 15 ML, aluminum-mag hydrox-simethicon 30 ML, sucralfate oral liq 1 GM PO (15:33)
[2023-02-04] MEDS: ondansetron 2 mg/ML SDV 2 mL 4 MG IVP (15:33)
[2023-02-04 15:36] LABS: INR 0.98 (0.8-1.2)
[2023-02-04 15:41] LABS: Troponin(5th) Baseline 23 ng/L (0-10)
[2023-02-04 15:51] LABS: Alanine Aminotransferase 22 U/L (0-33); Albumin Level 4.1 g/dL (3.5-5.2); Alkaline Phosphatase 88 U/L (35-105); Anion Gap 15.5 (5-19); Aspartate Amino Transferase 18 U/L (0-32); Blood Urea Nitrogen 22 mg/dL (8-23); Calcium 9.1 mg/dL (8.5-10.5); Carbon Dioxide 28 mmol/L (22-29); Chloride 101 mmol/L (98-107); Globulin 2.4 g/dL (1.3-4.6); Glomerular Filtration Rate 72.7 mL/min (90-130); Glucose 125 mg/dL (65-115); NT Pro B Type Natriuretic Pept 1096 pg/mL (0-125); Osmolality Calculated 297 mOsm/kg (285-295); Potassium 3.5 mmol/L (3.5-5.1); Sodium 141 mmol/L (136-145); Total Bilirubin 0.2 mg/dL (0.15-1.2); Total Protein 6.5 g/dL (6.6-8.7)
--- NOTE | 2023-02-04 17:11 | ECG_ITS ---
[facility] Test Date: 2023-02-04 Pat Name: Milly Mauricio Department: Room: Gender: Female Lecturer Of Portuguese: : 1960 Requested By: Jose Eduardo Grossman Order Number: [id number] Reading MD: SAVANNA LOBO Measurements Intervals [place] Rate: 87 P: 0 ND: 0 QRS: 21 QRSD: 103 T: -19 QT: 412 QTc: 497 Interpretive Statements SUPRAVENTRICULAR RHYTHM NONSPECIFIC ST & T-WAVE ABNORMALITY ABNORMAL RHYTHM ECG Compared to ECG 01/17/2020 07:39:48 Supraventricular rhythm now present Atrial fibrillation no longer present Ventricular premature complex(es) no longer present Aberrant conduction of supraventricular beat(s) no longer present T-wave abnormality still present Electronically Signed On 02-04-2023 17:41:41 CDT by SAVANNA LOBO [id number]
[2023-02-04 17:56] LABS: Troponin 5 2HR 21.82 ng/L (0-10)
[2023-02-04 17:57] LABS: Troponin 5 2HR Delta -1.18 ABS# (0-10)
== END 2023-02-04 18:49 | disposition home or self-care (01) ==
PROVIDERS: Emergency Provider Emergency Medicine; PCP Nurse Practitioner Family
DX: I48.11 Longstanding persistent atrial fibrillation (principal); R07.89 Other chest pain; Z79.01 Long term (current) use of anticoagulants; Z87.891 Personal history of nicotine dependence; I10 Essential (primary) hypertension
CPT/HCPCS: 36415; 71045; 80053; 83880; 84484; 85025; 85610; 93005; 96374; 99285; J2405

== ENCOUNTER 2023-03-03 10:42 | Outpatient (CLI) | payer OTHER, SELFPAY ==
--- NOTE | 2023-03-03 10:50 | US_ITS ---
WS: [id number] RIGHT UPPER QUADRANT ULTRASOUND HISTORY: LUQ ABDOMINAL PAIN COMPARISON: None available. Liver: 14.0 cm in length. Normal size liver. Mild coarsened echotexture. Surface of the liver is very slightly nodular and irregular. No hepatic mass. Portal Vein: Normal hepatopetal flow with monophasic waveform. Gallbladder: Normally distended gallbladder with no stones or wall thickening. CBD: 0.5 cm Pancreas: Normal size and echogenicity. Right kidney: 10.7 cm in length. Normal size and echogenicity. No hydronephrosis or mass. Aorta and IVC: Unremarkable abdominal aorta and IVC. No ascites. US/US abdomen limited [id number] IMPRESSION: 1. Normal gallbladder. 2. Very mild hepatic steatosis. 3. No bile duct dilatation.
== END 2023-03-03 10:43 | disposition home or self-care (01) ==
PROVIDERS: PCP Nurse Practitioner Family; Visit Provider Nurse Practitioner Family
DX: R10.12 Left upper quadrant pain (principal)
CPT/HCPCS: 76705

== ENCOUNTER 2023-05-13 06:35 | Outpatient (CLI) | payer OTHER, SELFPAY ==
[2023-05-13 06:59] VITALS: BMI 46.2
--- NOTE | 2023-05-13 07:05 | ECG_ITS ---
[facility] Test Date: 2023-05-13 Pat Name: Milly Mauricio Department: Room: Gender: Female Patient Relations Manager: : 1960 Requested By: Anayeli Castillo Order Number: [id number] Arroyo MD: Nancy Mims M.D. Interpretive Statements NAME OF STUDY: LEXISCAN SESTAMIBI STRESS TEST INDICATION: Chest Pain PROCEDURE: At the baseline, the blood pressure was 148/88 mm Hg with a heart rate of 75 bpm. The electrocardiogram showed atrial fibrillation with PVC's/aberrently conducted baets, normal axis.Non specific ST depression. ??? The Lexiscan was infused over a period of 20 seconds. A total of 0.4 milligrams of Lexiscan was infused. The stress phase was continued for a total of 5 minutes. Heart rate at the end of the stress phase was 79 bpm with a blood pressure og 162/91 mm Hg. The EKG at the peak infusion revealed no significant ST-T wave chnages. ??? Sestamibi was injected 20 seconds after the Lexiscan infusion. ??? Blood pressure at the end of the recovery phase was 173/86 mm Hg with a heart rate of 86 beats per minute. ??? CONCLUSION: 1. Equivocal EKG changes with the LexiScan infusion given baseline ST-T wave changes. 2. No LexiScan induced chest pain or cardiac arrhythmia. 3. Normal blood pressure and heart rate response. 4. Sestamibi/sestamibi perfusion scan pending; see separate report. Electronically Signed On 05-17-2023 9:05:10 CDT by Nancy Mims M.D. [email or web address]
--- NOTE | 2023-05-13 07:08 | NMCV_ITS ---
NM alycia perf SPECT r/s* [id number] Milly Mauricio Age: 62 Gender: F : 1960 Exam Date: 05/13/2023 07:46 Ordering Phys: Anayeli Castillo Technologist: TAMIE Finch Exam Location: [facility] Indications: Chest Pain STRESS TEST [facility] IMAGE PROTOCOL Rest/Stress 1 Lexiscan Day Radiopharmaceutical Dose (mCi) Administration Site Administered by Rest: Tc-99m 10.6 IV Guillermo Serrano, TRAVELING PASSENGER AGENT Sestamibi Stress:Tc-99m 33.0 IV Guillermo Serrano, TRAVELING PASSENGER AGENT Sestamibi Rest: 13-May-2023 60 Discovery 630 Stress: 13-May-2023 30 Discovery 630 0.4mg Lexiscan. Supine position only as patient was unable to lay prone. SPECT RESULTS Technical Quality: Excellent Raw Data Analysis: Breast attenuation, Adequate Image Corrections: No attenuation or motion correction applied Summed Stress Score: 11 Summed Rest Score: 11 Summed Difference Score: 0 PERFUSION FINDINGS Large sized perfusion abnormality of moderate to severe severity of entire inferior, basal to mid inferolateral and apical lateral [place] on rest and stress images. FUNCTIONAL RESULTS (calculated via Gated SPECT) Stress Image LV EF (%): 51 Stress EDV (mL):169 TID: 1.04 Stress ESV (mL):82 FUNCTIONAL FINDINGS: The left ventricle is normal in size. Transient Ischemia Dilatation of 1. The left ventricular ejection fraction is mildly reduced with a value of 51%. There is mildly decreased wall thickening. There is mildly reduced left ventricular global systolic function. IMPRESSIONS 1. Large sized fixed perfusion abnormality of moderate to severe severity of entire inferior, basal to mid inferolateral and apical lateral [place]. 2. This likely represents old myocardial infarction in right coronary artery/circumflex artery territory with no grazyna-infarct ischemia. 3. The left ventricular ejection fraction is mildly reduced with a value of 51%. 4. There is mildly decreased wall thickening. 5. EKG portion of the study will be reported separately. Nancy Mims MD (Electronically Signed) Final Date: 19 May 2023 16:20 S
[2023-05-13] MEDS: regadenoson 0.4 Mg/5 ml Syringe IVP (08:31)
[2023-05-13 08:43] VITALS: BP 173/86; PULSE 95
== END 2023-05-13 06:36 | disposition home or self-care (01) ==
PROVIDERS: PCP Nurse Practitioner Family; Visit Provider Nurse Practitioner Family
DX: R07.9 Chest pain, unspecified (principal)
CPT/HCPCS: 36415; 78452; 96374; A9500; J2785

== ENCOUNTER 2024-01-16 10:26 | Outpatient (CLI) | payer MEDICAID, SELFPAY ==
--- NOTE | 2024-01-16 10:40 | MM_ITS ---
WS: [id number] BILATERAL SCREENING DIGITAL TOMOSYNTHESIS MAMMOGRAM WITH CAD HISTORY: SCREENING COMPARISON: 10/15/2021, 06/14/2020 Bilateral CC and MLO views with tomosynthesis and synthetic mammography submitted. Computer aided det ection analyzed. Breast composition: The breasts are almost entirely fatty. No suspicious masses, microcalcifications or architectural distortion. Benign calcifications in each breast. IMPRESSION: MM/[place] [id number] BI-RADS: 2-Benign FOLLOW UP: 1 Year Follow-up
== END 2024-01-16 10:27 | disposition home or self-care (01) ==
LOC: RAD 10:27
PROVIDERS: PCP Nurse Practitioner Family; Visit Provider Family Medicine
DX: Z12.31 Encounter for screening mammogram for malignant neoplasm of breast (principal); R92.1 Mammographic calcification found on diagnostic imaging of breast
CPT/HCPCS: 77063; 77067

== ENCOUNTER 2024-02-10 09:20 | Outpatient (CLI) | payer MEDICAID, SELFPAY ==
--- NOTE | 2024-02-10 09:32 | CT_ITS ---
WS: [id number] LDCT LUNG CANCER SCREENING HISTORY: HX OF TOBACCO USE TECHNIQUE: Axial imaging performed from the apices to 1 cm below the costophrenic angles. Coronal and sagittal reformats are submitted with axial MIP series. All CT scans at [facility] use at least one of these dose optimization techniques: automated exposure control; mA and/or kV adjustment per patient size (includes targeted exams where dose is matched to clinical indication); or iterativ e reconstruction. DLP: 188.01 mGy.cm DIvol: Mean CTDIvol: 4.70 (mGy) COMPARISON: 01/17/2020 Diagnostic quality: Satisfactory Lungs: No pulmonary mass or nodule. No pneumonia. Subtle area of groundglass attenuation in the media l RIGHT lower lobe adjacent to the spine is probably related to spine disease. There is no pulmonary mass or nodule. Heart: Normal size heart with no pericardial effusion.. Other findings: Very mild atherosclerosis aorta. Normal size pulmonary artery. No mediastinal or camryn r adenopathy. Mild coronary artery calcification. Large hiatal hernia. No adrenal mass. IMPRESSION: CT/CT lung screening [id number] LUNG-RADS: 1-Negative FOLLOW UP: 12 Month: Continue annual screening with LDCT OTHER FINDINGS (S MODIFIER): None.
== END 2024-02-10 09:21 | disposition home or self-care (01) ==
LOC: RAD 09:21
PROVIDERS: PCP Nurse Practitioner Family; Visit Provider Family Medicine
DX: Z12.2 Encounter for screening for malignant neoplasm of respiratory organs (principal); Z87.891 Personal history of nicotine dependence
CPT/HCPCS: 71271

== ENCOUNTER 2024-05-24 09:05 | Outpatient (CLI) | payer MEDICAID, SELFPAY ==
--- NOTE | 2024-05-24 09:14 | XR_ITS ---
WS: [id number] XR lumbar spine 6V w f/e [id number] REASON FOR EXAM: LOW BACK PAIN FINDINGS: Moderate rotatory dextroscoliosis of the lumbar spine. Straightening of the normal lordosis of the ingrid mbar spine. Mild narrowing of the intervertebral disc spaces with mild endplate sclerosis and osteophytosis L2-S1 . No spondylolysis. 2 to 3 mm of anterolisthesis of L4 and L5 which is slightly accentuated with flexion and reduced with extension. XR/XR lumbar spine 6V w f/e [id number] IMPRESSION: Moderate degenerative spondylosis of the lumbar spine as above.
== END 2024-05-24 09:06 | disposition home or self-care (01) ==
PROVIDERS: PCP Nurse Practitioner Family; Visit Provider Family Medicine
DX: M47.896 Other spondylosis, lumbar region (principal); M41.86 Other forms of scoliosis, lumbar region
CPT/HCPCS: 72114

== ENCOUNTER → 2024-06-10 13:53 | Outpatient (BNVA) | payer MEDICAID, SELFPAY | PROVIDERS: PCP Nurse Practitioner Family; Visit Provider Orthopaedic Surgery | DX: M54.9 Dorsalgia, unspecified (principal) | CPT/HCPCS: 72110 ==

== ENCOUNTER 2024-06-22 10:01 | Outpatient (CLI) | payer MEDICAID, SELFPAY ==
--- NOTE | 2024-06-22 10:06 | CT_ITS ---
WS: [id number] CT ABDOMEN AND PELVIS WITH CONTRAST HISTORY: LUQ ABDOMINAL PAIN/DIVERTICULAR DZ TECHNIQUE: Imaging performed of the abdomen and pelvis with IV contrast. Single phase imaging of the abdomen. Coronal and sagittal reformats are submitted. All CT scans at [facility] use at [address] one of these dose optimization techniques: automated exposure control; mA and/or kV adjustment per patient size (includes targeted exams where dose is matched to clinical indication); or iterative re construction. IV CONTRAST: Omnipaque 350; 100 mL IV. Oral contrast: Yes. DLP: 1397.90 mGy.cm COMPARISON: 03/28/2008 Lower thorax: Lung bases are clear. Heart is normal size. Large hiatal hernia. Similar to the prior s tudy. Liver/biliary system: Normal. Gallbladder: Normally distended gallbladder. Focal increased density within the gallbladder is suspic ious for gallstone versus polyp. Prior ultrasound from 03/03/2023 did not demonstrate a stone or polyp . Pancreas: Normal size pancreas and pancreatic duct. No adjacent inflammation. Spleen: Normal size spleen. No mass or infarct. Adrenal glands: Normal. Right kidney: Normal. Left kidney: Normal. Aorta: Mild atherosclerosis with no aneurysm. Mesenteric arteries are normally enhancing. Lymphadenopathy: None. Free fluid: None. GI tract: No small bowel obstruction. No colon obstruction. The appendix is normal. Increasing divert icular burden throughout the transverse colon extending to the sigmoid. Innumerable diverticula at th e sigmoid. There is a focal area of acute diverticulitis involving the mid descending colon with a sm all amount of fluid along the paracolic gutter. No abscess. No perforation. Abdominal wall: Fat containing umbilical hernia. Pelvis: No free fluid or adenopathy within the pelvis. Normal appearance of the uterus and [employer] struct ures. Bones: Increase in the lumbar lordosis. Degenerative changes at L4-[address]/CT abdomen pelvis w con* [id number] IMPRESSION: 1. Focal mid descending colon acute diverticulitis. No abscess or free air. 2. Increasing diverticulosis throughout the colon beginning in the transverse colon. More significant burden in the sigmoid. 3. Increased density in the gallbladder. This may be a small gallstone or poly p. No gallbladder abnormality was noted on a prior ultrasound from 03/03/2023. 4. Large size hiatal hernia.
[2024-06-22] MEDS: iohexol 350 mg/mL 500 mL Btl (per mL) PO (10:54)
[2024-06-22] MEDS: iohexol 350 mg/mL 500 mL Btl (per mL) IV (11:02)
== END 2024-06-22 10:02 | disposition home or self-care (01) ==
LOC: RAD 10:02
PROVIDERS: PCP Nurse Practitioner Family; Visit Provider Family Medicine
DX: K44.9 Diaphragmatic hernia without obstruction or gangrene (principal); I70.0 Atherosclerosis of aorta; K42.9 Umbilical hernia without obstruction or gangrene; K57.92 Diverticulitis of intestine, part unspecified, without perforation or abscess without bleeding
CPT/HCPCS: 74177; Q9967

== ENCOUNTER 2024-07-02 10:42 | Outpatient (RCR) | payer MEDICAID, SELFPAY | END 2024-07-24 23:59 | disposition home or self-care (01) | LOC: SPT 10:42 | PROVIDERS: PCP Family Medicine; Visit Provider Orthopaedic Surgery | DX: M54.9 Dorsalgia, unspecified (principal); G89.29 Other chronic pain | CPT/HCPCS: 97110; 97161 ==

== ENCOUNTER 2024-07-21 10:52 | Outpatient (CLI) | payer MEDICAID, SELFPAY ==
--- NOTE | 2024-07-21 11:00 | MR_ITS ---
WS: [id number] MRI LUMBAR SPINE WITH AND WITHOUT CONTRAST HISTORY: Back Pain COMPARISON: None available. TECHNIQUE: Sagittal and axial multisequence imaging is submitted. MultiHance 20 mL IV. Reversal the normal cervical lordosis. Posterior displacement of the cervical cord. Component of cent ral canal stenosis is likely at C5-6 and C6-7. Normal lumbar alignment with no compression fractures or marrow edema. Mild disc space narrowing and desiccation at L4-5. Conus terminates normally at L1. L1-L2: Normal. L2-L3: Mild annular disc bulging with a shallow LEFT foraminal disc protrusion. Mild ligamentum flavu m and facet arthropathy. Very slight LEFT subarticular recess and mild LEFT foraminal stenosis. L3-L4: Diffuse osteophytic ridging and annular disc bulging. Moderate ligamentum flavum and facet art hritis. Mild central, bilateral subarticular recess and foraminal stenosis. L4-L5: Marked annular disc bulging encroaching upon the ventral thecal sac and subarticular recesses. There is a central disc protrusion with extends above and below the disc space. There is encroachmen t upon the ventral thecal sac and subarticular recesses. Moderate central with bilateral subarticular recess and foraminal stenosis. Disc bulging extends into the foramina also contacting the L4 nerve r oots. L5-S1: Mild disc bulging with osteophytic ridging. LEFT foraminal broad-based disc protrusion. Disc b ulging and protrusions contact the S1 nerve roots, LEFT greater than RIGHT. Mild bilateral foraminal stenosis. Moderate facet joint arthropathy. Paraspinal soft tissues are negative. Postcontrast imaging is negative for discitis or osteomyelitis. No facet joint enhancement. No mass in the neural foramen. MR/MR lumbar spine wo/w con [id number] IMPRESSION: 1. Mild degenerative disc disease and spondylosis. Areas of stenosis throughou t the lumbar spine due to combination of disc, disc protrusions, facet and liga mentum flavum disease. 2. L2-3: LEFT foraminal disc protrusion with mild LEFT subarticular recess and mild foraminal stenosis. 3. L3-4: Mild central, bilateral subarticular recess and foraminal stenosis. 4. L4-5: Moderate central with bilateral subarticular recess and foraminal abdiaziz nosis. There is a central disc protrusion extending the above and below the dis c space. Contact on both the L4 and L5 nerve roots. 5. L5-S1: LEFT foraminal broad-based disc protrusion. There is mild disc conta ct on the S1 nerve roots, LEFT greater than RIGHT with mild foraminal stenosis. 6. Reversal of curvature of the normal cervical lordosis resulting in posterio r displacement of the cord and component of cervical stenosis at C5-6 and C6-7.
[2024-07-21] MEDS: gadobenate dimeglumine 20 mL vial IV (11:34)
== END 2024-07-21 10:53 | disposition home or self-care (01) ==
LOC: RAD 10:53
PROVIDERS: PCP Family Medicine; Visit Provider Orthopaedic Surgery
DX: M47.896 Other spondylosis, lumbar region (principal); M51.26 Other intervertebral disc displacement, lumbar region; M25.78 Osteophyte, vertebrae; M47.898 Other spondylosis, sacral and sacrococcygeal region
CPT/HCPCS: 72158; A9577

== ENCOUNTER 2024-07-25 06:30 | Outpatient (RCR) | payer MEDICAID, SELFPAY | END 2024-08-23 23:59 | disposition home or self-care (01) | LOC: SPT 06:30 | PROVIDERS: PCP Family Medicine; Visit Provider Orthopaedic Surgery | DX: M54.9 Dorsalgia, unspecified (principal); G89.29 Other chronic pain | CPT/HCPCS: 97110 ==

== ENCOUNTER 2024-08-24 06:30 | Outpatient (RCR) | payer MEDICAID, SELFPAY | END 2024-09-23 23:59 | disposition home or self-care (01) | LOC: SPT 06:30 | PROVIDERS: Visit Provider Orthopaedic Surgery | DX: M54.9 Dorsalgia, unspecified (principal); G89.29 Other chronic pain | CPT/HCPCS: 97110 ==

== ENCOUNTER 2025-04-22 09:44 | Outpatient (CLI) | payer MEDICAID, SELFPAY ==
--- NOTE | 2025-04-22 09:55 | MM_ITS ---
WS: [email or web address] BILATERAL 3D TOMOSYNTHESIS DIGITAL SCREENING MAMMOGRAM WITH CAD CLINICAL INFORMATION: SCREENING HISTORY: Screening mammogram. No current complaints. COMPARISON: 2023 TECHNIQUE: Bilateral CC and MLO views. FINDINGS: Fatty-replaced breasts bilaterally. No suspicious focal mass, asymmetry, calcifications, or architectural distortion. No evidence of malignancy. Incidental punctate and lucent centered calcifications. MM/MM scr tomosynthesis [id number] IMPRESSION: DENSITY: The breasts are almost entirely fatty. BI-RADS: 2 - Benign. FOLLOW UP: 1 Year Follow-up Recommend return to annual screening mammography.
--- NOTE | 2025-04-22 09:55 | CT_ITS ---
WS: [email or web address] LDCT LUNG CANCER SCREENING HISTORY: HX OF TOBACCO USE TECHNIQUE: Axial imaging performed from the apices to 1 cm below the costophrenic angles. Coronal and sagittal reformats are submitted with axial MIP series. All CT scans at [facility] use at least one of these dose optimization techniques: automated exposure control; mA and/or kV adjustment per patient size (includes targeted exams where dose is matched to clinical indication); or iterative reconstruction. DLP: 195.19 mGy.cm DIvol: Mean CTDIvol: 4.90 (mGy) COMPARISON: 02/10/2024 Diagnostic quality: Satisfactory Lungs: Mild biapical pleural thickening and scarring and tagging. No mass, nodule or pneumonia. No endobronchial thickening. Heart: Mild cardiomegaly. Minimal coronary artery calcification.. Other findings: Mild atherosclerosis aorta. Large hiatal hernia. No adrenal mass. CT/CT lung screening [id number] IMPRESSION: LUNG-RADS: 2-Benign Appearance or Behavior FOLLOW UP: 12 Month: Continue annual screening with LDCT OTHER FINDINGS (S MODIFIER): None.
== END 2025-04-22 09:45 | disposition home or self-care (01) ==
PROVIDERS: PCP Family Medicine; Visit Provider Family Medicine
DX: Z12.31 Encounter for screening mammogram for malignant neoplasm of breast (principal); Z12.2 Encounter for screening for malignant neoplasm of respiratory organs; Z87.891 Personal history of nicotine dependence; R92.313 Mammographic fatty tissue density, bilateral breasts; R92.1 Mammographic calcification found on diagnostic imaging of breast; J92.9 Pleural plaque without asbestos; J98.4 Other disorders of lung; I51.7 Cardiomegaly; I70.0 Atherosclerosis of aorta; K44.9 Diaphragmatic hernia without obstruction or gangrene
CPT/HCPCS: 71271; 77063; 77067